=== PATIENT | male | born 1975 | race Caucasian/White ===

== ENCOUNTER 2019-10-12 22:52 | Inpatient (IN) | payer MEDICAID ==
[~2019-10-12] VITALS: Ht 170.2 cm; Wt 82.8 kg
[2019-10-13] MEDS ORDERED: TRAZ-252 PO (00:02)
[2019-10-13 01:40] LABS: BASOPHILS % (AUTO) 1.2 % (0.0-2.0); EOSINOPHILS % (AUTO) 3.6 % (1.0-6.0); HEMATOCRIT 40.4 % (41-53); HEMOGLOBIN 13.4 g/dL (13.5-17.5); LYMPHOCYTES # (AUTO) 1.4 K/uL (1.0-4.8); MEAN CORPUSCULAR HEMOGLOBIN 30.5 pg (26.0-34.0); MEAN CORPUSCULAR HGB CONC 33.2 G/dL (31.0-37.0); MEAN CORPUSCULAR VOLUME 92 fL (80-100); MONOCYTES # (AUTO) 0.6 K/uL (0.1-1.0); MONOCYTES % (AUTO) 6.9 % (2.0-9.0); NEUTROPHILS # (AUTO) 6.3 K/uL (1.8-7.7); NEUTROPHILS % (AUTO) 72.3 % (40.0-70.0); PLATELET COUNT (AUTO) 246 K/uL (150-450); RED BLOOD CELL COUNT(AUTO) 4.41 MIL/uL (4.50-5.90); RED CELL DISTRIBUTION WIDTH 14.6 % (11.5-14.5)
[2019-10-13 01:48] LABS: ANION GAP 4 mmol/L (8-16); CALCIUM, TOTAL 8.1 mg/dL (8.8-10.5); CARBON DIOXIDE 31 mmol/L (22-29); CHLORIDE 101 mmol/L (98-107); CREATININE 0.92 mg/dL (0.60-1.30); GLOMERULAR FILTR. RATE CALC > 60 mL/min (>60); GLUCOSE,RANDOM 119 mg/dL (70-110); POTASSIUM 4.2 mmol/L (3.5-5.1); SODIUM SERUM 136 mmol/L (136-145); UREA NITROGEN, BLOOD 28 mg/dL (7-18)
[2019-10-13 02:02] LABS: ALANINE AMINOTRANSFERASE 54 U/L (12-78); ALBUMIN 3.5 g/dL (3.4-5.0); ALKALINE PHOSPHATASE 90 U/L (46-116); ASPARTATE AMINOTRANSFERASE 32 U/L (15-37); BILIRUBIN,TOTAL 0.1 mg/dL (0.1-1.0); THYROID STIMULATING HORMONE 1.92 uIU/mL (0.36-3.74); TOTAL PROTEIN, SERUM 6.8 g/dL (6.4-8.2)
[2019-10-13] MEDS ORDERED: QUEtiapine FUMARATE 100 MG TABLET PO PRN (02:15)
[2019-10-13] MEDS: LORazepam 2 MG TABLET PO PRN (04:45)
[2019-10-13 05:39] VITALS: BP 118/71
[2019-10-13 08:11] VITALS: BP 105/85
[2019-10-13] MEDS ORDERED: ACETAMINOPHEN 325 MG TABLET PO PRN ×2 (15:15→19:45)
[2019-10-13 16:10] VITALS: BP 126/78
[2019-10-13] MEDS ORDERED: IBUPROFEN 400 MG TABLET PO PRN (16:45)
[2019-10-13] MEDS ORDERED: MAGNESIUM HYDROXIDE SUSPENSION 30 ML UDCUP PO PRN (19:45)
[2019-10-13] MEDS ORDERED: LOPERAMIDE HCL 2 MG CAPSULE PO PRN (19:45)
[2019-10-13] MEDS ORDERED: PETROLATUM,WHITE 28 GM JELLY TP PRN (19:45)
[2019-10-13] MEDS ORDERED: ONDANSETRON HCL 4 MG TABLET PO PRN (19:45)
[2019-10-13] MEDS ORDERED: ALBUTEROL SULFATE HFA 90 MCG/PUFF 8 GM INHALER IH PRN (19:45)
[2019-10-13] MEDS ORDERED: GuaiFENesin/D-METHORPHAN [SUGAR-FREE] 200-20MG/10 ML SYRUP UDCUP PO PRN (19:45)
[2019-10-13] MEDS ORDERED: MAG HYDROX/AL HYDROX/SIMETH ES 30 ML SUSPENSION UDCUP PO PRN (19:45)
[2019-10-13] MEDS ORDERED: NICOTINE 14 MG/24 HOUR PATCH TD PRN (19:45)
[2019-10-13] MEDS ORDERED: CloNIDine HCL 0.1 MG TABLET PO PRN (19:45)
[2019-10-13] MEDS ORDERED: DOCUSATE SODIUM 100 MG CAPSULE PO PRN (19:45)
[2019-10-13] MEDS: MIRTAZAPINE 15 MG TABLET PO SCH (20:42)
[2019-10-14 00:58] VITALS: BP 107/63
[2019-10-14] MEDS: IBUPROFEN 400 MG TABLET PO PRN (06:20)
[2019-10-14 08:18] VITALS: BP 120/70
[2019-10-14 08:26] LABS: HEMOGLOBIN A1C 5.4 % (3.8-5.6)
[2019-10-14 08:43] LABS: CHOL/HDL RATIO 2.4 (4.2-7.3); FREE T4 (FREE THYROXINE) 1.3 ng/dL (0.76-1.46); THYROID STIMULATING HORMONE 1.35 uIU/mL (0.36-3.74)
[2019-10-14 16:37] VITALS: BP 135/78
[2019-10-14] MEDS: LORazepam 2 MG TABLET PO PRN (18:38)
[2019-10-14] MEDS: MIRTAZAPINE 15 MG TABLET PO SCH (20:39)
[2019-10-15] MEDS: ZOLPIDEM TARTRATE 10 MG TABLET PO PRN (00:09)
[2019-10-15] MEDS: IBUPROFEN 400 MG TABLET PO PRN (03:04)
[2019-10-15 03:39] VITALS: BP 135/84
[2019-10-15 08:08] VITALS: BP 124/95
[2019-10-15 16:00] VITALS: BP 100/70
[2019-10-15] MEDS: MIRTAZAPINE 15 MG TABLET PO SCH (20:05)
[2019-10-15] MEDS ORDERED: OLANZapine 5 MG TABLET PO SCH (21:00)
[2019-10-16 00:35] VITALS: BP 119/73
[2019-10-16 08:18] VITALS: BP 100/60
[2019-10-16 17:22] VITALS: BP 111/75
[2019-10-16] MEDS: MIRTAZAPINE 15 MG TABLET PO SCH (20:01)
[2019-10-16] MEDS: OLANZapine 10 MG TABLET PO SCH (20:01)
[2019-10-17 01:39] VITALS: BP 110/72
[2019-10-17 08:02] VITALS: BP 120/88
[2019-10-17 16:08] VITALS: BP 118/72
[2019-10-17] MEDS: OLANZapine 10 MG TABLET PO SCH (20:09)
[2019-10-17] MEDS: MIRTAZAPINE 15 MG TABLET PO SCH (20:09)
[2019-10-18 00:45] VITALS: BP 115/70
[2019-10-18 08:46] VITALS: BP 111/66
[2019-10-18 16:20] VITALS: BP 126/69
[2019-10-18] MEDS: OLANZapine 10 MG TABLET PO SCH (20:01)
[2019-10-18] MEDS: MIRTAZAPINE 15 MG TABLET PO SCH (20:01)
[2019-10-19 00:30] VITALS: BP 129/75
[2019-10-19] MEDS: LORazepam 2 MG TABLET PO PRN (08:40)
[2019-10-19 08:46] VITALS: BP 128/77
[2019-10-19] MEDS: IBUPROFEN 400 MG TABLET PO PRN (09:16)
[2019-10-19 16:22] VITALS: BP 107/63
[2019-10-19] MEDS: OLANZapine 10 MG TABLET PO SCH (20:05)
[2019-10-19] MEDS: MIRTAZAPINE 15 MG TABLET PO SCH (20:05)
[2019-10-20 00:07] VITALS: BP 116/75
[2019-10-20 09:22] VITALS: BP 117/73
[2019-10-20 16:19] VITALS: BP_SYST 125; BP_SYST 146; BP_DIAS 81; BP_DIAS 89
[2019-10-20] MEDS: OLANZapine 10 MG TABLET PO SCH (20:11)
[2019-10-20] MEDS: MIRTAZAPINE 30 MG TABLET PO SCH (20:11)
[2019-10-21 01:08] VITALS: BP 121/77
[2019-10-21 08:01] VITALS: BP 131/76
[2019-10-21] MEDS: LORazepam 2 MG TABLET PO PRN ×2 (14:11→18:23)
[2019-10-21 16:09] VITALS: BP 117/67
[2019-10-21] MEDS: MIRTAZAPINE 30 MG TABLET PO SCH (20:11)
[2019-10-21] MEDS: OLANZapine 10 MG TABLET PO SCH (20:11)
[2019-10-21] MEDS: ZOLPIDEM TARTRATE 10 MG TABLET PO PRN (23:56)
[2019-10-22 00:18] VITALS: BP 110/69
[2019-10-22 08:39] VITALS: BP 139/70
[2019-10-22] MEDS: LORazepam 2 MG TABLET PO PRN ×2 (10:54→20:10)
[2019-10-22 16:28] VITALS: BP 104/74
[2019-10-22] MEDS: MIRTAZAPINE 30 MG TABLET PO SCH (20:10)
[2019-10-22] MEDS: OLANZapine 10 MG TABLET PO SCH (20:10)
[2019-10-22] MEDS: ZOLPIDEM TARTRATE 10 MG TABLET PO PRN (22:13)
[2019-10-23 00:54] VITALS: BP 120/75
[2019-10-23] MEDS: LORazepam 2 MG TABLET PO PRN ×2 (06:49→16:26)
[2019-10-23 08:13] VITALS: BP 130/64
[2019-10-23 16:03] VITALS: BP 107/64
[2019-10-23] MEDS: DiphenhydrAMINE HCL 25 MG CAPSULE PO PRN (18:18)
[2019-10-23] MEDS: OLANZapine 10 MG TABLET PO SCH (20:07)
[2019-10-23] MEDS: MIRTAZAPINE 30 MG TABLET PO SCH (20:07)
[2019-10-24 01:01] VITALS: BP 126/93
[2019-10-24 08:00] VITALS: BP 114/78
[2019-10-24] MEDS: LORazepam 2 MG TABLET PO PRN (12:06)
[2019-10-24 16:04] VITALS: BP 117/76
[2019-10-24] MEDS: MIRTAZAPINE 30 MG TABLET PO SCH (20:06)
[2019-10-24] MEDS: OLANZapine 10 MG TABLET PO SCH (20:06)
[2019-10-24] MEDS: DiphenhydrAMINE HCL 25 MG CAPSULE PO PRN (22:04)
[2019-10-25 01:14] VITALS: BP 128/70
[2019-10-25] MEDS: ZOLPIDEM TARTRATE 10 MG TABLET PO PRN (01:18)
[2019-10-25 08:42] VITALS: BP 100/60
[2019-10-25] MEDS: LORazepam 2 MG TABLET PO PRN ×2 (09:49→16:09)
[2019-10-25 16:11] VITALS: BP 116/81
[2019-10-25] MEDS: MIRTAZAPINE 30 MG TABLET PO SCH (20:47)
[2019-10-25] MEDS: OLANZapine 7.5 MG TABLET PO SCH (20:50)
[2019-10-26 00:02] VITALS: BP 116/78
[2019-10-26] MEDS: LORazepam 2 MG TABLET PO PRN ×2 (09:12→17:44)
[2019-10-26 09:17] VITALS: BP 130/75
[2019-10-26 16:20] VITALS: BP 118/78
[2019-10-26] MEDS: MIRTAZAPINE 30 MG TABLET PO SCH (20:02)
[2019-10-26] MEDS: OLANZapine 7.5 MG TABLET PO SCH (20:04)
[2019-10-26] MEDS: ZOLPIDEM TARTRATE 10 MG TABLET PO PRN (20:58)
[2019-10-27 00:29] VITALS: BP 120/82
[2019-10-27 08:13] VITALS: BP 140/77
[2019-10-27] MEDS: LORazepam 2 MG TABLET PO PRN (11:05)
[2019-10-27 16:00] VITALS: BP 128/75
[2019-10-27 18:43] VITALS: BP 128/75
[2019-10-27] MEDS: MIRTAZAPINE 30 MG TABLET PO SCH (20:16)
[2019-10-27] MEDS: OLANZapine 7.5 MG TABLET PO SCH (20:16)
[2019-10-28 01:12] VITALS: BP 103/64
[2019-10-28] MEDS: LORazepam 2 MG TABLET PO PRN (07:55)
[2019-10-28 08:12] VITALS: BP 135/74
[2019-10-28] MEDS ORDERED: MIRT30 PO ×2 (09:16→09:32)
[2019-10-28] MEDS ORDERED: OLAN7.5T2 PO (09:16)
[2019-10-28] MEDS ORDERED: OLAN7.5T9 PO (09:32)
== END 2019-10-28 10:50 | disposition home or self-care (01) | DRG 751 ==
LOC: EMS 22:54 → B2S 10-13 02:41
DX: F33.3 Major depressive disorder, recurrent, severe with psychotic symptoms (principal); R45.851 Suicidal ideations; F11.20 Opioid dependence, uncomplicated; R51 Headache; D64.9 Anemia, unspecified; R73.9 Hyperglycemia, unspecified; F19.90 Other psychoactive substance use, unspecified, uncomplicated; F41.9 Anxiety disorder, unspecified; G89.29 Other chronic pain; F17.210 Nicotine dependence, cigarettes, uncomplicated; Z59.0 Homelessness; Z71.51 Drug abuse counseling and surveillance of drug abuser; Z91.5 Personal history of self-harm; Z79.899 Other long term (current) drug therapy; Z87.820 Personal history of traumatic brain injury
CPT/HCPCS: 83036; 84439; 84443; G0480

== ENCOUNTER 2020-05-01 08:33 | Inpatient (IN) | payer MEDICAID ==
[~2020-05-01] VITALS: Ht 170.2 cm; Wt 63.8 kg
[2020-05-01] VITALS (11 sets, daily range): BP systolic 100–129; BP diastolic 60–94
[~2020-05-01 08:33] MED LIST: MIRT30 PO; OLAN7.5T2 PO; OLAN7.5T9 PO
[2020-05-01] MEDS ORDERED: INFLUENZA VIRUS VACCINE QVS 2020-21 (6MO+)/PF 60 MCG/0.5 ML SYRINGE IM ONE (14:15)
[2020-05-01] MEDS: LORazepam 2 MG TABLET PO PRN (19:52)
[2020-05-01] MEDS ORDERED: MAGNESIUM HYDROXIDE SUSPENSION 30 ML UDCUP PO PRN (20:15)
[2020-05-01] MEDS ORDERED: TUBERCULIN, PURIFIED PROTEIN DERIVATIVE 5 TU/0.1 ML SYRINGE ID ONE (20:15)
[2020-05-01] MEDS ORDERED: ACETAMINOPHEN 325 MG TABLET PO PRN (20:15)
[2020-05-01] MEDS ORDERED: HydrOXYzine PAMOATE 50 MG CAPSULE PO PRN ×2 (20:15)
[2020-05-01] MEDS ORDERED: CloNIDine HCL 0.1 MG TABLET PO PRN (20:15)
[2020-05-01] MEDS ORDERED: PROMETHAZINE HCL 25 MG TABLET PO PRN (20:15)
[2020-05-01] MEDS ORDERED: LOPERAMIDE HCL 2 MG CAPSULE PO PRN ×2 (20:15)
[2020-05-01] MEDS ORDERED: MAG HYDROX/AL HYDROX/SIMETH ES 30 ML SUSPENSION UDCUP PO PRN ×2 (20:15)
[2020-05-01] MEDS ORDERED: GuaiFENesin/D-METHORPHAN [SUGAR-FREE] 200-20MG/10 ML SYRUP UDCUP PO PRN (20:15)
[2020-05-01] MEDS ORDERED: IBUPROFEN 600 MG TABLET PO PRN (20:15)
[2020-05-01] MEDS ORDERED: OLANZapine 5 MG RAPDIS TABLET PO SCH (21:00)
[2020-05-01] MEDS: CloNIDine HCL 0.1 MG TABLET PO SCH (21:01)
[2020-05-02] VITALS (7 sets, daily range): BP systolic 105–121; BP diastolic 64–76
[2020-05-02] MEDS: CloNIDine HCL 0.1 MG TABLET PO SCH ×4 (06:00→21:57)
[2020-05-02] MEDS: FOLIC ACID 1 MG TABLET PO SCH (09:00)
[2020-05-02] MEDS: MULTIVITAMINS WITH MINERALS, THERAPEUTIC TABLET PO SCH (09:00)
[2020-05-02] MEDS: THIAMINE 100 MG TABLET PO SCH ×2 (09:00→17:07)
[2020-05-02] MEDS: ACAMPROSATE CALCIUM 333 MG DR TABLET PO SCH ×3 (09:00→17:10)
[2020-05-02] MEDS ORDERED: NALTREXONE HCL 50 MG TABLET PO SCH (09:00)
[2020-05-02] MEDS: FLUoxetine HCL 20 MG CAPSULE PO SCH (09:00)
[2020-05-02] MEDS: OMEGA-3/DHA/EPA/FISH OIL 1,000 MG CAPSULE PO SCH (09:00)
[2020-05-02] MEDS: HALOPERIDOL 5 MG TABLET PO PRN (09:20)
[2020-05-02] MEDS: LORazepam 2 MG TABLET PO PRN (09:20)
[2020-05-02] MEDS: OLANZapine 10 MG RAPDIS TABLET PO SCH (19:55)
[2020-05-03] VITALS (8 sets, daily range): BP systolic 102–132; BP diastolic 69–86
[2020-05-03] MEDS: CloNIDine HCL 0.1 MG TABLET PO SCH ×5 (05:56→21:04)
[2020-05-03] MEDS: MULTIVITAMINS WITH MINERALS, THERAPEUTIC TABLET PO SCH (09:00)
[2020-05-03] MEDS: FLUoxetine HCL 20 MG CAPSULE PO SCH (09:00)
[2020-05-03] MEDS: ACAMPROSATE CALCIUM 333 MG DR TABLET PO SCH ×3 (09:00→16:34)
[2020-05-03] MEDS: FOLIC ACID 1 MG TABLET PO SCH (09:00)
[2020-05-03] MEDS: OMEGA-3/DHA/EPA/FISH OIL 1,000 MG CAPSULE PO SCH (09:00)
[2020-05-03] MEDS: THIAMINE 100 MG TABLET PO SCH ×2 (09:00→16:34)
[2020-05-03] MEDS: DIVALPROEX SODIUM 500 MG ER TABLET PO SCH (21:04)
[2020-05-03] MEDS: OLANZapine 10 MG RAPDIS TABLET PO SCH (21:04)
[2020-05-04] VITALS (8 sets, daily range): BP systolic 117–131; BP diastolic 73–83
[2020-05-04] MEDS: CloNIDine HCL 0.1 MG TABLET PO SCH ×4 (06:00→21:10)
[2020-05-04] MEDS: THIAMINE 100 MG TABLET PO SCH ×2 (08:35→16:33)
[2020-05-04] MEDS: OMEGA-3/DHA/EPA/FISH OIL 1,000 MG CAPSULE PO SCH (08:35)
[2020-05-04] MEDS: MULTIVITAMINS WITH MINERALS, THERAPEUTIC TABLET PO SCH (08:35)
[2020-05-04] MEDS: FOLIC ACID 1 MG TABLET PO SCH (08:35)
[2020-05-04] MEDS: ACAMPROSATE CALCIUM 333 MG DR TABLET PO SCH (08:35)
[2020-05-04] MEDS: FLUoxetine HCL 20 MG CAPSULE PO SCH (08:35)
[2020-05-04] MEDS: HALOPERIDOL 5 MG TABLET PO PRN (10:37)
[2020-05-04] MEDS: DIVALPROEX SODIUM 500 MG ER TABLET PO SCH (21:03)
[2020-05-04] MEDS: OLANZapine 10 MG RAPDIS TABLET PO SCH (21:04)
[2020-05-05] VITALS: BP 139/86
[2020-05-05] MEDS: CloNIDine HCL 0.1 MG TABLET PO SCH ×4 (06:00→22:00)
[2020-05-05 08:24] VITALS: BP 117/70
[2020-05-05 08:25] VITALS: BP 117/70
[2020-05-05] MEDS: FOLIC ACID 1 MG TABLET PO SCH (09:06)
[2020-05-05] MEDS: OMEGA-3/DHA/EPA/FISH OIL 1,000 MG CAPSULE PO SCH (09:06)
[2020-05-05] MEDS: NALTREXONE HCL 50 MG TABLET PO SCH (09:07)
[2020-05-05] MEDS: MULTIVITAMINS WITH MINERALS, THERAPEUTIC TABLET PO SCH (09:07)
[2020-05-05] MEDS: THIAMINE 100 MG TABLET PO SCH ×2 (09:07→17:00)
[2020-05-05] MEDS: FLUoxetine HCL 20 MG CAPSULE PO SCH (09:07)
[2020-05-05] MEDS: LORazepam 2 MG TABLET PO PRN (10:17)
[2020-05-05 16:10] VITALS: BP 125/80
[2020-05-05 16:11] VITALS: BP 125/80
[2020-05-05] MEDS: GABAPENTIN 300 MG CAPSULE PO SCH ×2 (17:00→21:00)
[2020-05-05] MEDS: DIVALPROEX SODIUM 500 MG ER TABLET PO SCH (21:00)
[2020-05-05] MEDS: OLANZapine 10 MG RAPDIS TABLET PO SCH (21:00)
[2020-05-06] VITALS (9 sets, daily range): BP systolic 113–130; BP diastolic 76–97
[2020-05-06] MEDS: CloNIDine HCL 0.1 MG TABLET PO SCH ×4 (07:07→21:06)
[2020-05-06] MEDS: OMEGA-3/DHA/EPA/FISH OIL 1,000 MG CAPSULE PO SCH (08:57)
[2020-05-06] MEDS: FLUoxetine HCL 20 MG CAPSULE PO SCH (08:57)
[2020-05-06] MEDS: MULTIVITAMINS WITH MINERALS, THERAPEUTIC TABLET PO SCH (08:57)
[2020-05-06] MEDS: NALTREXONE HCL 50 MG TABLET PO SCH (08:57)
[2020-05-06] MEDS: THIAMINE 100 MG TABLET PO SCH ×2 (08:57→16:35)
[2020-05-06] MEDS: GABAPENTIN 300 MG CAPSULE PO SCH ×4 (08:57→21:06)
[2020-05-06] MEDS: FOLIC ACID 1 MG TABLET PO SCH (08:57)
[2020-05-06] MEDS: LORazepam 2 MG TABLET PO PRN (09:50)
[2020-05-06] MEDS: DIVALPROEX SODIUM 500 MG ER TABLET PO SCH (21:06)
[2020-05-06] MEDS: OLANZapine 10 MG RAPDIS TABLET PO SCH (21:06)
[2020-05-07] VITALS (7 sets, daily range): BP systolic 103–128; BP diastolic 69–82
[2020-05-07] MEDS: CloNIDine HCL 0.1 MG TABLET PO SCH ×4 (06:34→21:06)
[2020-05-07] MEDS: FLUoxetine HCL 20 MG CAPSULE PO SCH (08:19)
[2020-05-07] MEDS: NALTREXONE HCL 50 MG TABLET PO SCH (08:19)
[2020-05-07] MEDS: GABAPENTIN 300 MG CAPSULE PO SCH ×4 (08:19→21:05)
[2020-05-07] MEDS: OMEGA-3/DHA/EPA/FISH OIL 1,000 MG CAPSULE PO SCH (08:19)
[2020-05-07] MEDS: FOLIC ACID 1 MG TABLET PO SCH (08:19)
[2020-05-07] MEDS: THIAMINE 100 MG TABLET PO SCH ×2 (08:19→16:11)
[2020-05-07] MEDS: MULTIVITAMINS WITH MINERALS, THERAPEUTIC TABLET PO SCH (08:19)
[2020-05-07] MEDS: OLANZapine 10 MG RAPDIS TABLET PO SCH (21:05)
[2020-05-07] MEDS: DIVALPROEX SODIUM 500 MG ER TABLET PO SCH (21:06)
[2020-05-08] VITALS: BP 114/70
[2020-05-08 01:54] VITALS: BP 122/75
[2020-05-08] MEDS: CloNIDine HCL 0.1 MG TABLET PO SCH ×4 (06:05→21:06)
[2020-05-08] MEDS: OMEGA-3/DHA/EPA/FISH OIL 1,000 MG CAPSULE PO SCH (09:01)
[2020-05-08] MEDS: FOLIC ACID 1 MG TABLET PO SCH (09:01)
[2020-05-08] MEDS: GABAPENTIN 300 MG CAPSULE PO SCH ×2 (09:01→12:44)
[2020-05-08] MEDS: MULTIVITAMINS WITH MINERALS, THERAPEUTIC TABLET PO SCH (09:01)
[2020-05-08] MEDS: THIAMINE 100 MG TABLET PO SCH ×2 (09:01→16:58)
[2020-05-08] MEDS: NALTREXONE HCL 50 MG TABLET PO SCH (09:01)
[2020-05-08] MEDS: FLUoxetine HCL 20 MG CAPSULE PO SCH (09:01)
[2020-05-08 09:40] VITALS: BP 127/78
[2020-05-08 16:28] VITALS: BP 129/77
[2020-05-08] MEDS: GABAPENTIN 400 MG CAPSULE PO SCH ×2 (16:58→20:25)
[2020-05-08] MEDS: LORazepam 2 MG TABLET PO PRN (17:26)
[2020-05-08] MEDS: DIVALPROEX SODIUM 500 MG ER TABLET PO SCH (20:25)
[2020-05-08] MEDS: OLANZapine 10 MG RAPDIS TABLET PO SCH (20:25)
[2020-05-08 21:00] VITALS: BP 112/71
[2020-05-09 03:44] VITALS: BP 123/77
[2020-05-09] MEDS: CloNIDine HCL 0.1 MG TABLET PO SCH ×4 (05:58→22:26)
[2020-05-09 08:49] VITALS: BP 106/77
[2020-05-09] MEDS: GABAPENTIN 400 MG CAPSULE PO SCH ×2 (08:49→12:39)
[2020-05-09] MEDS: FLUoxetine HCL 20 MG CAPSULE PO SCH (08:49)
[2020-05-09] MEDS: NALTREXONE HCL 50 MG TABLET PO SCH (08:49)
[2020-05-09] MEDS: FOLIC ACID 1 MG TABLET PO SCH (08:49)
[2020-05-09] MEDS: THIAMINE 100 MG TABLET PO SCH ×2 (08:49→16:57)
[2020-05-09] MEDS: MULTIVITAMINS WITH MINERALS, THERAPEUTIC TABLET PO SCH (08:49)
[2020-05-09] MEDS: OMEGA-3/DHA/EPA/FISH OIL 1,000 MG CAPSULE PO SCH (08:49)
[2020-05-09] MEDS: LORazepam 2 MG TABLET PO PRN ×2 (08:50→17:18)
[2020-05-09 16:11] VITALS: BP 102/63
[2020-05-09] MEDS: GABAPENTIN 300 MG CAPSULE PO SCH ×2 (16:57→20:32)
[2020-05-09 17:17] VITALS: BP 129/73
[2020-05-09] MEDS ORDERED: TUBERCULIN, PURIFIED PROTEIN DERIVATIVE 5 TU/0.1 ML SYRINGE ID ONE (18:30)
[2020-05-09] MEDS ORDERED: INFLUENZA VIRUS VACCINE QVS 2020-21 (6MO+)/PF 60 MCG/0.5 ML SYRINGE IM ONE (18:30)
[2020-05-09] MEDS: DIVALPROEX SODIUM 500 MG ER TABLET PO SCH (20:32)
[2020-05-09] MEDS: OLANZapine 10 MG RAPDIS TABLET PO SCH (20:34)
[2020-05-10 00:29] VITALS: BP 120/68
[2020-05-10] MEDS: CloNIDine HCL 0.1 MG TABLET PO SCH ×4 (05:58→21:08)
[2020-05-10] MEDS: GABAPENTIN 300 MG CAPSULE PO SCH ×2 (08:17→12:47)
[2020-05-10] MEDS: THIAMINE 100 MG TABLET PO SCH ×2 (08:17→16:23)
[2020-05-10] MEDS: OMEGA-3/DHA/EPA/FISH OIL 1,000 MG CAPSULE PO SCH (08:17)
[2020-05-10] MEDS: NALTREXONE HCL 50 MG TABLET PO SCH (08:17)
[2020-05-10] MEDS: FLUoxetine HCL 20 MG CAPSULE PO SCH (08:17)
[2020-05-10] MEDS: FOLIC ACID 1 MG TABLET PO SCH (08:18)
[2020-05-10] MEDS: MULTIVITAMINS WITH MINERALS, THERAPEUTIC TABLET PO SCH (08:18)
[2020-05-10 08:23] VITALS: BP 142/71
[2020-05-10 12:45] VITALS: BP 127/80
[2020-05-10] MEDS: GABAPENTIN 400 MG CAPSULE PO SCH ×2 (16:25→21:08)
[2020-05-10 16:50] VITALS: BP 107/68
[2020-05-10 21:05] VITALS: BP 102/65
[2020-05-10] MEDS: OLANZapine 10 MG RAPDIS TABLET PO SCH (21:08)
[2020-05-10] MEDS: DIVALPROEX SODIUM 500 MG ER TABLET PO SCH (21:08)
[2020-05-11 02:15] VITALS: BP 130/77
[2020-05-11 06:18] VITALS: BP 124/81
[2020-05-11] MEDS: CloNIDine HCL 0.1 MG TABLET PO SCH ×2 (06:23→12:40)
[2020-05-11 07:44] LABS: BASOPHILS % (AUTO) 1.2 % (0.0-2.0); EOSINOPHILS % (AUTO) 4.1 % (1.0-6.0); HEMATOCRIT 44.1 % (41-53); HEMOGLOBIN 15.1 g/dL (13.5-17.5); LYMPHOCYTES # (AUTO) 1.9 K/uL (1.0-4.8); LYMPHOCYTES % (AUTO) 20.3 % (22.0-44.0); MEAN CORPUSCULAR HEMOGLOBIN 31.9 pg (26.0-34.0); MEAN CORPUSCULAR HGB CONC 34.3 G/dL (31.0-37.0); MEAN CORPUSCULAR VOLUME 93 fL (80-100); MONOCYTES # (AUTO) 0.8 K/uL (0.1-1.0); MONOCYTES % (AUTO) 8.6 % (2.0-9.0); NEUTROPHILS # (AUTO) 6.3 K/uL (1.8-7.7); NEUTROPHILS % (AUTO) 65.8 % (40.0-70.0); PLATELET COUNT (AUTO) 285 K/uL (150-450); RED BLOOD CELL COUNT(AUTO) 4.75 MIL/uL (4.50-5.90); RED CELL DISTRIBUTION WIDTH 13.5 % (11.5-14.5)
[2020-05-11 08:17] LABS: HEMOGLOBIN A1C 5.3 % (3.8-5.6)
[2020-05-11 08:18] LABS: ALANINE AMINOTRANSFERASE 51 U/L (12-78); ALBUMIN 3.3 g/dL (3.4-5.0); ALKALINE PHOSPHATASE 86 U/L (46-116); ANION GAP 7 mmol/L (8-16); ASPARTATE AMINOTRANSFERASE 22 U/L (15-37); BILIRUBIN,TOTAL 0.2 mg/dL (0.1-1.0); CALCIUM, TOTAL 9.3 mg/dL (8.8-10.5); CARBON DIOXIDE 30 mmol/L (22-29); CHLORIDE 102 mmol/L (98-107); CHOL/HDL RATIO 3.5 (4.2-7.3); CHOLESTEROL 194 mg/dL (131-200); CREATININE 0.67 mg/dL (0.60-1.30); FREE T4 (FREE THYROXINE) 0.92 ng/dL (0.76-1.46); GLOMERULAR FILTR. RATE CALC > 60 mL/min (>60); GLUCOSE,RANDOM 76 mg/dL (70-110); HDL CHOLESTEROL 56 mg/dL (40-60); LDL CHOL (CALC.) 107 mg/dL (0-130); POTASSIUM 4.3 mmol/L (3.5-5.1); SODIUM SERUM 139 mmol/L (136-145); THYROID STIMULATING HORMONE 0.66 uIU/mL (0.36-3.74); TOTAL PROTEIN, SERUM 7.2 g/dL (6.4-8.2); TRIGLYCERIDES 154 mg/dL (15-150); UREA NITROGEN, BLOOD 19 mg/dL (7-18); VALPROIC ACID 62 mcg/mL (50-100)
[2020-05-11 08:26] VITALS: BP 105/64
[2020-05-11] MEDS: MULTIVITAMINS WITH MINERALS, THERAPEUTIC TABLET PO SCH (08:47)
[2020-05-11] MEDS: FLUoxetine HCL 20 MG CAPSULE PO SCH (08:47)
[2020-05-11] MEDS: OMEGA-3/DHA/EPA/FISH OIL 1,000 MG CAPSULE PO SCH (08:47)
[2020-05-11] MEDS: GABAPENTIN 400 MG CAPSULE PO SCH ×2 (08:47→12:40)
[2020-05-11] MEDS: NALTREXONE HCL 50 MG TABLET PO SCH (08:48)
[2020-05-11] MEDS: THIAMINE 100 MG TABLET PO SCH ×2 (08:48→16:52)
[2020-05-11] MEDS: FOLIC ACID 1 MG TABLET PO SCH (08:48)
[2020-05-11 12:40] VITALS: BP 122/72
[2020-05-11 16:28] VITALS: BP 119/70
[2020-05-11] MEDS: LITHIUM CARBONATE 300 MG CAPSULE PO SCH (16:52)
[2020-05-11] MEDS: GABAPENTIN 300 MG CAPSULE PO SCH ×2 (16:52→20:21)
[2020-05-11] MEDS: DIVALPROEX SODIUM 500 MG ER TABLET PO SCH (20:21)
[2020-05-11] MEDS: OLANZapine 10 MG RAPDIS TABLET PO SCH (20:21)
[2020-05-12 00:17] VITALS: BP 110/89
[2020-05-12] MEDS: LITHIUM CARBONATE 300 MG CAPSULE PO SCH ×3 (06:31→16:22)
[2020-05-12] MEDS: GABAPENTIN 300 MG CAPSULE PO SCH ×4 (08:30→20:12)
[2020-05-12] MEDS: NALTREXONE HCL 50 MG TABLET PO SCH (08:30)
[2020-05-12] MEDS: FLUoxetine HCL 20 MG CAPSULE PO SCH (08:30)
[2020-05-12] MEDS: OMEGA-3/DHA/EPA/FISH OIL 1,000 MG CAPSULE PO SCH (08:31)
[2020-05-12] MEDS: MULTIVITAMINS WITH MINERALS, THERAPEUTIC TABLET PO SCH (08:31)
[2020-05-12 09:55] VITALS: BP 122/65
[2020-05-12] MEDS: GABAPENTIN 100 MG CAPSULE PO SCH ×3 (12:45→20:12)
[2020-05-12 16:32] VITALS: BP 123/85
[2020-05-12] MEDS: LORazepam 2 MG TABLET PO PRN (18:16)
[2020-05-12] MEDS: OLANZapine 10 MG RAPDIS TABLET PO SCH (20:12)
[2020-05-12] MEDS: DIVALPROEX SODIUM 500 MG ER TABLET PO SCH (20:12)
[2020-05-13 00:14] VITALS: BP 130/76
[2020-05-13] MEDS: LITHIUM CARBONATE 300 MG CAPSULE PO SCH ×3 (06:38→16:11)
[2020-05-13] MEDS: LORazepam 2 MG TABLET PO PRN (07:07)
[2020-05-13] MEDS: GABAPENTIN 300 MG CAPSULE PO SCH ×4 (08:13→20:24)
[2020-05-13] MEDS: FLUoxetine HCL 20 MG CAPSULE PO SCH (08:13)
[2020-05-13] MEDS: GABAPENTIN 100 MG CAPSULE PO SCH ×4 (08:13→20:24)
[2020-05-13] MEDS: MULTIVITAMINS WITH MINERALS, THERAPEUTIC TABLET PO SCH (08:13)
[2020-05-13] MEDS: NALTREXONE HCL 50 MG TABLET PO SCH (08:13)
[2020-05-13] MEDS: OMEGA-3/DHA/EPA/FISH OIL 1,000 MG CAPSULE PO SCH (08:14)
[2020-05-13 10:35] VITALS: BP 115/60
[2020-05-13 16:36] VITALS: BP 123/88
[2020-05-13] MEDS: DIVALPROEX SODIUM 500 MG ER TABLET PO SCH (20:23)
[2020-05-13] MEDS: OLANZapine 10 MG RAPDIS TABLET PO SCH (20:24)
[2020-05-14 00:45] VITALS: BP 120/67
[2020-05-14] MEDS: LITHIUM CARBONATE 300 MG CAPSULE PO SCH ×3 (06:49→16:14)
[2020-05-14 08:01] LABS: APPEARANCE,URINE CLEAR (CLEAR); BILIRUBIN,URINE NEGATIVE (NEGATIVE); GLUCOSE, URINE (UA) NEGATIVE (NEGATIVE); KETONES,URINE NEGATIVE (NEGATIVE); LEUKOCYTE ESTERASE ,URINE NEGATIVE (NEGATIVE); NITRATE,URINE NEGATIVE (NEGATIVE); OCCULT BLOOD,URINE NEGATIVE (NEGATIVE); PROTEIN,URINE NEGATIVE (NEGATIVE); UROBILINOGEN,URINE 0.2 mg/dL (<=1.0)
[2020-05-14 08:14] LABS: AMPHET/METH SCREEN,URINE NEGATIVE (NEGATIVE); BARBITURATE SCREEN, URINE NEGATIVE (NEGATIVE); BENZODIAZEPINES SCREEN,URINE NEGATIVE (NEGATIVE); CANNABINOID SCREEN,URINE NEGATIVE (NEGATIVE); COCAINE SCREEN,URINE NEGATIVE (NEGATIVE); METHADONE SCREEN, URINE NEGATIVE (NEGATIVE); OPIATE SCREEN,URINE NEGATIVE (NEGATIVE)
[2020-05-14 08:15] LABS: PHENCYCLIDINE SCREEN,URINE NEGATIVE (NEGATIVE)
[2020-05-14] MEDS: GABAPENTIN 100 MG CAPSULE PO SCH ×4 (08:28→20:24)
[2020-05-14] MEDS: FLUoxetine HCL 20 MG CAPSULE PO SCH (08:28)
[2020-05-14] MEDS: GABAPENTIN 300 MG CAPSULE PO SCH ×4 (08:28→20:24)
[2020-05-14] MEDS: OMEGA-3/DHA/EPA/FISH OIL 1,000 MG CAPSULE PO SCH (08:28)
[2020-05-14] MEDS: NALTREXONE HCL 50 MG TABLET PO SCH (08:28)
[2020-05-14] MEDS: MULTIVITAMINS WITH MINERALS, THERAPEUTIC TABLET PO SCH (08:28)
[2020-05-14 08:54] VITALS: BP 148/99
[2020-05-14] MEDS: LORazepam 2 MG TABLET PO PRN (13:43)
[2020-05-14 16:39] VITALS: BP 116/90
[2020-05-14] MEDS: DIVALPROEX SODIUM 500 MG ER TABLET PO SCH (20:23)
[2020-05-14] MEDS: OLANZapine 10 MG RAPDIS TABLET PO SCH (20:24)
[2020-05-15 01:47] VITALS: BP 117/82
[2020-05-15] MEDS: LITHIUM CARBONATE 300 MG CAPSULE PO SCH ×3 (06:49→16:49)
[2020-05-15] MEDS: MULTIVITAMINS WITH MINERALS, THERAPEUTIC TABLET PO SCH (09:04)
[2020-05-15] MEDS: FLUoxetine HCL 20 MG CAPSULE PO SCH (09:04)
[2020-05-15] MEDS: GABAPENTIN 300 MG CAPSULE PO SCH ×4 (09:04→20:19)
[2020-05-15] MEDS: NALTREXONE HCL 50 MG TABLET PO SCH (09:05)
[2020-05-15] MEDS: GABAPENTIN 100 MG CAPSULE PO SCH ×4 (09:05→20:19)
[2020-05-15] MEDS: OMEGA-3/DHA/EPA/FISH OIL 1,000 MG CAPSULE PO SCH (09:05)
[2020-05-15 09:17] VITALS: BP 123/77
[2020-05-15] MEDS: LORazepam 2 MG TABLET PO PRN (10:42)
[2020-05-15 16:15] VITALS: BP 128/76
[2020-05-15] MEDS: DIVALPROEX SODIUM 500 MG ER TABLET PO SCH (20:20)
[2020-05-15] MEDS: OLANZapine 10 MG RAPDIS TABLET PO SCH (20:20)
[2020-05-15] MEDS: ZOLPIDEM TARTRATE 10 MG TABLET PO PRN (21:59)
[2020-05-16 01:07] VITALS: BP 133/92
[2020-05-16] MEDS: LITHIUM CARBONATE 300 MG CAPSULE PO SCH ×3 (06:56→16:19)
[2020-05-16 08:20] VITALS: BP 125/77
[2020-05-16] MEDS: MULTIVITAMINS WITH MINERALS, THERAPEUTIC TABLET PO SCH (08:22)
[2020-05-16] MEDS: FLUoxetine HCL 20 MG CAPSULE PO SCH (08:22)
[2020-05-16] MEDS: GABAPENTIN 300 MG CAPSULE PO SCH ×4 (08:23→20:09)
[2020-05-16] MEDS: NALTREXONE HCL 50 MG TABLET PO SCH (08:23)
[2020-05-16] MEDS: GABAPENTIN 100 MG CAPSULE PO SCH ×4 (08:23→20:09)
[2020-05-16] MEDS: OMEGA-3/DHA/EPA/FISH OIL 1,000 MG CAPSULE PO SCH (08:23)
[2020-05-16] MEDS ORDERED: OMEGA-3/DHA/EPA/FISH OIL 1,000 MG CAPSULE PO SCH (09:00)
[2020-05-16] MEDS: LORazepam 2 MG TABLET PO PRN (10:54)
[2020-05-16 16:18] VITALS: BP 129/76
[2020-05-16] MEDS: DIVALPROEX SODIUM 500 MG ER TABLET PO SCH (20:10)
[2020-05-16] MEDS: OLANZapine 10 MG RAPDIS TABLET PO SCH (20:10)
[2020-05-16] MEDS: ZOLPIDEM TARTRATE 10 MG TABLET PO PRN (20:10)
[2020-05-17 01:25] VITALS: BP 110/81
[2020-05-17] MEDS: LITHIUM CARBONATE 300 MG CAPSULE PO SCH ×3 (07:05→16:06)
[2020-05-17 08:11] VITALS: BP 136/84
[2020-05-17] MEDS: GABAPENTIN 100 MG CAPSULE PO SCH ×3 (08:26→16:07)
[2020-05-17] MEDS: NALTREXONE HCL 50 MG TABLET PO SCH (08:26)
[2020-05-17] MEDS: OMEGA-3/DHA/EPA/FISH OIL 1,000 MG CAPSULE PO SCH (08:26)
[2020-05-17] MEDS: GABAPENTIN 300 MG CAPSULE PO SCH ×3 (08:26→16:06)
[2020-05-17] MEDS: MULTIVITAMINS WITH MINERALS, THERAPEUTIC TABLET PO SCH (08:26)
[2020-05-17] MEDS: FLUoxetine HCL 20 MG CAPSULE PO SCH (08:26)
[2020-05-17] MEDS ORDERED: DIVA-80 PO (15:02)
[2020-05-17] MEDS ORDERED: FLUO-191 PO (15:02)
[2020-05-17] MEDS ORDERED: NALT50TA PO (15:02)
[2020-05-17] MEDS ORDERED: OMEG-135 PO (15:02)
[2020-05-17] MEDS ORDERED: LITH300C3 PO (15:02)
[2020-05-17] MEDS ORDERED: OLAN10TA22 PO (15:02)
[2020-05-17] MEDS ORDERED: LITH600 PO (15:04)
[2020-05-17] MEDS ORDERED: OLANZapine 10 MG TABLET PO ONE (15:45)
[2020-05-17] MEDS ORDERED: LITHIUM CARBONATE 600 MG CAPSULE PO ONE (15:45)
[2020-05-17] MEDS ORDERED: LITHIUM CARBONATE 300 MG CAPSULE PO ONE (15:45)
[2020-05-17] MEDS ORDERED: DIVALPROEX SODIUM 500 MG ER TABLET PO ONE (15:45)
== END 2020-05-17 17:00 | disposition home or self-care (01) | DRG 750 ==
LOC: B2S 12:18
PROVIDERS: ADMIT Psychiatry & Neurology Psychiatry; ATTEND Psychiatry & Neurology Psychiatry
DX: F20.0 Paranoid schizophrenia (principal); E11.9 Type 2 diabetes mellitus without complications; G89.29 Other chronic pain; R45.851 Suicidal ideations; F17.210 Nicotine dependence, cigarettes, uncomplicated; Z55.9 Problems related to education and literacy, unspecified; Z59.0 Homelessness; Z65.3 Problems related to other legal circumstances; Z79.899 Other long term (current) drug therapy; Z91.14 Patient's other noncompliance with medication regimen; Z91.19 Patient's noncompliance with other medical treatment and regimen; Z28.21 Immunization not carried out because of patient refusal
CPT/HCPCS: 80307; 83036; 84439; 84443; 86592; 90686; 36415-L1; 36415-TC; 71045-TC; 80061-TC; 81003-TC

== ENCOUNTER 2021-02-17 15:35 | Inpatient (IN) | payer MEDICAID ==
[~2021-02-17] VITALS: Ht 170.2 cm; Wt 70.8 kg
[~2021-02-17 15:35] MED LIST changes: +DIVA-80 PO; +FLUO-191 PO; +LITH600C5 PO; -MIRT30 PO; +NALT50TA PO; +OLAN10TA22 PO; -OLAN7.5T2 PO; -OLAN7.5T9 PO; +OMEG-135 PO
[2021-02-17] MEDS ORDERED: ZOLPIDEM TARTRATE 10 MG TABLET PO PRN (20:30)
[2021-02-17 20:38] LABS: COVID AG,FIA SOURCE NASOPHARYNGEAL
[2021-02-17 20:40] LABS: BASOPHILS % (AUTO) 1.3 % (0.0-2.0); EOSINOPHILS % (AUTO) 2.6 % (1.0-6.0); HEMATOCRIT 43.2 % (41-53); HEMOGLOBIN 14.7 g/dL (13.5-17.5); LYMPHOCYTES # (AUTO) 1.6 K/uL (1.0-4.8); LYMPHOCYTES % (AUTO) 21.4 % (22.0-44.0); MEAN CORPUSCULAR HEMOGLOBIN 31.2 pg (26.0-34.0); MEAN CORPUSCULAR VOLUME 92 fL (80-100); MONOCYTES # (AUTO) 0.6 K/uL (0.1-1.0); MONOCYTES % (AUTO) 7.3 % (2.0-9.0); NEUTROPHILS # (AUTO) 5.1 K/uL (1.8-7.7); NEUTROPHILS % (AUTO) 67.4 % (40.0-70.0); PLATELET COUNT (AUTO) 245 K/uL (150-450); RED CELL DISTRIBUTION WIDTH 13.1 % (11.5-14.5)
[2021-02-17 20:48] LABS: AMPHET/METH SCREEN,URINE NEGATIVE (NEGATIVE); BARBITURATE SCREEN, URINE NEGATIVE (NEGATIVE); BENZODIAZEPINES SCREEN,URINE NEGATIVE (NEGATIVE); CANNABINOID SCREEN,URINE NEGATIVE (NEGATIVE); COCAINE SCREEN,URINE NEGATIVE (NEGATIVE); METHADONE SCREEN, URINE NEGATIVE (NEGATIVE); OPIATE SCREEN,URINE NEGATIVE (NEGATIVE)
[2021-02-17 20:49] LABS: ANION GAP 4 mmol/L (8-16); CALCIUM, TOTAL 8.8 mg/dL (8.8-10.5); CARBON DIOXIDE 33 mmol/L (22-29); CHLORIDE 96 mmol/L (98-107); CREATININE 0.74 mg/dL (0.60-1.30); GLOMERULAR FILTR. RATE CALC > 60 mL/min (>60); GLUCOSE,RANDOM 112 mg/dL (70-110); POTASSIUM 4.1 mmol/L (3.5-5.1); SODIUM SERUM 133 mmol/L (136-145); UREA NITROGEN, BLOOD 17 mg/dL (7-18)
[2021-02-17 20:49] LABS: PHENCYCLIDINE SCREEN,URINE NEGATIVE (NEGATIVE)
[2021-02-17 20:52] LABS: LITHIUM < 0.20 mmol/L (0.60-1.20)
[2021-02-17 20:57] LABS: ALANINE AMINOTRANSFERASE 44 U/L (12-78); ALBUMIN 3.9 g/dL (3.4-5.0); ALKALINE PHOSPHATASE 72 U/L (46-116); ASPARTATE AMINOTRANSFERASE 24 U/L (15-37); BILIRUBIN,TOTAL 0.5 mg/dL (0.1-1.0); TOTAL PROTEIN, SERUM 7.9 g/dL (6.4-8.2); VALPROIC ACID < 3 mcg/mL (50-100)
[2021-02-18 01:32] LABS: CHOL/HDL RATIO 2.9 (4.2-7.3); CHOLESTEROL 191 mg/dL (131-200); HDL CHOLESTEROL 66 mg/dL (40-60); LDL CHOL (CALC.) 105 mg/dL (0-130); TRIGLYCERIDES 101 mg/dL (15-150)
[2021-02-18] MEDS: LORazepam 2 MG TABLET PO PRN ×2 (04:30→10:50)
[2021-02-18] MEDS: HALOPERIDOL 5 MG TABLET PO PRN (10:50)
[2021-02-18 16:28] LABS: APPEARANCE,URINE CLEAR (CLEAR); BILIRUBIN,URINE NEGATIVE (NEGATIVE); GLUCOSE, URINE (UA) NEGATIVE (NEGATIVE); KETONES,URINE NEGATIVE (NEGATIVE); LEUKOCYTE ESTERASE ,URINE NEGATIVE (NEGATIVE); NITRATE,URINE NEGATIVE (NEGATIVE); OCCULT BLOOD,URINE NEGATIVE (NEGATIVE); PH,URINE 7.5 (5.0-8.0); PROTEIN,URINE NEGATIVE (NEGATIVE)
[2021-02-18 16:34] VITALS: BP 126/87
[2021-02-19 00:29] LABS: GLUCOMETER DEV NAME(LOC) BV3N.; GLUCOSE,POINT OF CARE 111 MG/DL (70-110)
[2021-02-19] MEDS: LORazepam 2 MG TABLET PO PRN ×3 (09:22→20:11)
[2021-02-19] MEDS: HALOPERIDOL 5 MG TABLET PO PRN ×2 (09:22→16:10)
[2021-02-19 09:26] VITALS: BP 119/76
[2021-02-19] MEDS ORDERED: ACETAMINOPHEN 325 MG TABLET PO PRN (10:30)
[2021-02-19] MEDS ORDERED: LOPERAMIDE HCL 2 MG CAPSULE PO PRN (10:30)
[2021-02-19] MEDS ORDERED: NICOTINE 14 MG/24 HOUR PATCH TD PRN (10:30)
[2021-02-19] MEDS ORDERED: ALBUTEROL SULFATE HFA 90 MCG/PUFF 8 GM INHALER IH PRN (10:30)
[2021-02-19] MEDS ORDERED: GuaiFENesin/D-METHORPHAN [SUGAR-FREE] 200-20MG/10 ML SYRUP UDCUP PO PRN (10:30)
[2021-02-19] MEDS ORDERED: MAG HYDROX/AL HYDROX/SIMETH ES 30 ML SUSPENSION UDCUP PO PRN (10:30)
[2021-02-19] MEDS ORDERED: ONDANSETRON HCL 4 MG TABLET PO PRN (10:30)
[2021-02-19] MEDS ORDERED: IBUPROFEN 400 MG TABLET PO PRN (10:30)
[2021-02-19] MEDS ORDERED: CloNIDine HCL 0.1 MG TABLET PO PRN (10:30)
[2021-02-19] MEDS ORDERED: PETROLATUM,WHITE 28 GM JELLY TP PRN (10:30)
[2021-02-19] MEDS ORDERED: DOCUSATE SODIUM 100 MG CAPSULE PO PRN (10:30)
[2021-02-19] MEDS ORDERED: MAGNESIUM HYDROXIDE SUSPENSION 30 ML UDCUP PO PRN (10:30)
[2021-02-19] MEDS: ESCITALOPRAM OXALATE 10 MG TABLET PO SCH (11:02)
[2021-02-19] MEDS: LITHIUM CARBONATE 300 MG CAPSULE PO SCH ×2 (13:00→16:10)
[2021-02-19] MEDS: GABAPENTIN 300 MG CAPSULE PO SCH ×2 (13:00→16:10)
[2021-02-19 17:42] VITALS: BP 119/81
[2021-02-19] MEDS: DIVALPROEX SODIUM 500 MG DR TABLET PO SCH (20:11)
[2021-02-19 20:32] VITALS: BP 119/81
[2021-02-19] MEDS ORDERED: HALOPERIDOL LACTATE 5 MG/ML VIAL ONE (23:03)
[2021-02-19] MEDS ORDERED: DiphenhydrAMINE HCL 50 MG/ML VIAL ONE (23:03)
[2021-02-19] MEDS ORDERED: LORazepam 2 MG/ML VIAL ONE (23:03)
[2021-02-19] MEDS ORDERED: LORazepam 2 MG/ML VIAL IM ONE (23:15)
[2021-02-19] MEDS ORDERED: DiphenhydrAMINE HCL 50 MG/ML VIAL IM ONE (23:15)
[2021-02-19] MEDS ORDERED: HALOPERIDOL LACTATE 5 MG/ML VIAL IM ONE (23:15)
[2021-02-20] MEDS: HALOPERIDOL 5 MG TABLET PO PRN ×2 (08:30→16:52)
[2021-02-20] MEDS: LORazepam 2 MG TABLET PO PRN ×3 (08:30→16:52)
[2021-02-20] MEDS: ESCITALOPRAM OXALATE 10 MG TABLET PO SCH (09:16)
[2021-02-20] MEDS: LITHIUM CARBONATE 300 MG CAPSULE PO SCH ×3 (09:16→16:52)
[2021-02-20] MEDS: OMEGA-3/DHA/EPA/FISH OIL 1,000 MG CAPSULE PO SCH (09:16)
[2021-02-20] MEDS: GABAPENTIN 300 MG CAPSULE PO SCH ×3 (09:16→16:51)
[2021-02-20 16:15] VITALS: BP 132/90
[2021-02-20] MEDS: DIVALPROEX SODIUM 500 MG DR TABLET PO SCH (20:34)
[2021-02-21] VITALS (9 sets, daily range): BP systolic 92–150; BP diastolic 53–96
[2021-02-21] MEDS: HALOPERIDOL 5 MG TABLET PO PRN ×2 (08:20→16:48)
[2021-02-21] MEDS: LORazepam 2 MG TABLET PO PRN ×2 (08:20→12:52)
[2021-02-21] MEDS: GABAPENTIN 300 MG CAPSULE PO SCH ×3 (08:35→16:48)
[2021-02-21] MEDS: LITHIUM CARBONATE 300 MG CAPSULE PO SCH ×3 (08:35→16:48)
[2021-02-21] MEDS: ESCITALOPRAM OXALATE 10 MG TABLET PO SCH (08:35)
[2021-02-21] MEDS: OMEGA-3/DHA/EPA/FISH OIL 1,000 MG CAPSULE PO SCH (08:35)
[2021-02-21] MEDS ORDERED: CloNIDine HCL 0.1 MG TABLET PO PRN (11:15)
[2021-02-21] MEDS ORDERED: IBUPROFEN 600 MG TABLET PO PRN (11:15)
[2021-02-21] MEDS ORDERED: HydrOXYzine PAMOATE 50 MG CAPSULE PO PRN (11:15)
[2021-02-21] MEDS ORDERED: MAG HYDROX/AL HYDROX/SIMETH ES 30 ML SUSPENSION UDCUP PO PRN (11:15)
[2021-02-21] MEDS: CloNIDine HCL 0.1 MG TABLET PO SCH ×3 (12:52→22:00)
[2021-02-21] MEDS: DIVALPROEX SODIUM 500 MG DR TABLET PO SCH (21:00)
[2021-02-22 04:41] VITALS: BP 86/63
[2021-02-22 05:35] VITALS: BP 105/60
[2021-02-22 05:37] VITALS: BP 105/60
[2021-02-22] MEDS: CloNIDine HCL 0.1 MG TABLET PO SCH ×4 (06:24→22:00)
[2021-02-22] MEDS: ESCITALOPRAM OXALATE 10 MG TABLET PO SCH (09:17)
[2021-02-22] MEDS: OMEGA-3/DHA/EPA/FISH OIL 1,000 MG CAPSULE PO SCH (09:17)
[2021-02-22] MEDS: LITHIUM CARBONATE 300 MG CAPSULE PO SCH ×3 (09:17→17:00)
[2021-02-22] MEDS: GABAPENTIN 300 MG CAPSULE PO SCH ×3 (09:17→17:00)
[2021-02-22] MEDS: HALOPERIDOL 5 MG TABLET PO PRN (12:10)
[2021-02-22] MEDS: LORazepam 2 MG TABLET PO PRN (12:10)
[2021-02-22 12:24] VITALS: BP 116/70
[2021-02-22] MEDS ORDERED: ACETAMINOPHEN 650 MG/20.3 ML SOLUTION UDCUP PO ONE (12:45)
[2021-02-22 15:23] VITALS: BP 112/68
[2021-02-22] MEDS: DIVALPROEX SODIUM 500 MG DR TABLET PO SCH (21:00)
== END 2021-02-23 07:35 | disposition short-term general hospital (02) | DRG 750 ==
LOC: EMS 15:38 → B3A 02-18 14:52
PROVIDERS: ADMIT Psychiatry & Neurology Child & Adolescent Psychiatry; ATTEND Psychiatry & Neurology Child & Adolescent Psychiatry
DX: F25.1 Schizoaffective disorder, depressive type (principal); R45.851 Suicidal ideations; E87.1 Hypo-osmolality and hyponatremia; F17.210 Nicotine dependence, cigarettes, uncomplicated; F41.9 Anxiety disorder, unspecified; E11.9 Type 2 diabetes mellitus without complications; R00.0 Tachycardia, unspecified
CPT/HCPCS: 80053; 80061; 80164; 80178; 81003; 82962; 85025; 99285; G0480; J1200; J1630; J2060

== ENCOUNTER 2021-02-22 15:48 | Inpatient (IN) | payer MEDICAID ==
[~2021-02-22] VITALS: Ht 167.6 cm; Wt 67.0 kg
[2021-02-22] MEDS ORDERED: SODIUM CHLORIDE 0.9% 2,000 ML IV ONE (16:30)
[2021-02-22 17:17] LABS: BASOPHILS % (AUTO) 1.4 % (0.0-2.0); EOSINOPHILS % (AUTO) 2.7 % (1.0-6.0); HEMATOCRIT 44.9 % (41-53); HEMOGLOBIN 15.2 g/dL (13.5-17.5); LYMPHOCYTES # (AUTO) 1.9 K/uL (1.0-4.8); LYMPHOCYTES % (AUTO) 27.7 % (22.0-44.0); MEAN CORPUSCULAR HEMOGLOBIN 31.3 pg (26.0-34.0); MEAN CORPUSCULAR HGB CONC 33.8 G/dL (31.0-37.0); MEAN CORPUSCULAR VOLUME 93 fL (80-100); MONOCYTES # (AUTO) 0.7 K/uL (0.1-1.0); MONOCYTES % (AUTO) 10.1 % (2.0-9.0); NEUTROPHILS # (AUTO) 3.9 K/uL (1.8-7.7); NEUTROPHILS % (AUTO) 58.1 % (40.0-70.0); PLATELET COUNT (AUTO) 232 K/uL (150-450); RED BLOOD CELL COUNT(AUTO) 4.84 MIL/uL (4.50-5.90); RED CELL DISTRIBUTION WIDTH 13.3 % (11.5-14.5)
[2021-02-22 17:31] LABS: INR 1.1 (0.9-1.1); PROTHROMBIN TIME 11.3 SEC (9.4-11.6)
[2021-02-22 17:34] LABS: ANION GAP 12 mmol/L (8-16); CALCIUM, TOTAL 9.2 mg/dL (8.8-10.5); CARBON DIOXIDE 26 mmol/L (22-29); CHLORIDE 105 mmol/L (98-107); GLOMERULAR FILTR. RATE CALC > 60 mL/min (>60); GLUCOSE,RANDOM 91 mg/dL (70-110); POTASSIUM 4.1 mmol/L (3.5-5.1); SODIUM SERUM 143 mmol/L (136-145); UREA NITROGEN, BLOOD 29 mg/dL (7-18)
[2021-02-22 17:37] LABS: ALANINE AMINOTRANSFERASE 37 U/L (12-78); ALBUMIN 3.7 g/dL (3.4-5.0); ALKALINE PHOSPHATASE 59 U/L (46-116); ASPARTATE AMINOTRANSFERASE 27 U/L (15-37); TOTAL PROTEIN, SERUM 7.5 g/dL (6.4-8.2); VALPROIC ACID 41 mcg/mL (50-100)
[2021-02-22 17:49] LABS: LACTIC ACID 0.8 mmol/L (0.4-2.0)
[2021-02-22 18:26] LABS: COVID AG,FIA SOURCE NASOPHARYNGEAL
[2021-02-22 18:29] LABS: APPEARANCE,URINE CLEAR (CLEAR); GLUCOSE, URINE (UA) NEGATIVE (NEGATIVE); KETONES,URINE 15 mg/dL (NEGATIVE); LEUKOCYTE ESTERASE ,URINE NEGATIVE (NEGATIVE); NITRATE,URINE NEGATIVE (NEGATIVE); OCCULT BLOOD,URINE NEGATIVE (NEGATIVE); PROTEIN,URINE TRACE (NEGATIVE); UROBILINOGEN,URINE >=8.0 mg/dL (<=1.0)
[2021-02-22 18:51] LABS: BILIRUBIN,URINE PRELIM. POSITIVE (NEGATIVE)
[2021-02-22 18:54] LABS: AMPHET/METH SCREEN,URINE NEGATIVE (NEGATIVE); BARBITURATE SCREEN, URINE NEGATIVE (NEGATIVE); BENZODIAZEPINES SCREEN,URINE NEGATIVE (NEGATIVE); CANNABINOID SCREEN,URINE NEGATIVE (NEGATIVE); COCAINE SCREEN,URINE NEGATIVE (NEGATIVE); METHADONE SCREEN, URINE NEGATIVE (NEGATIVE); OPIATE SCREEN,URINE NEGATIVE (NEGATIVE)
[2021-02-22 19:10] LABS: PHENCYCLIDINE SCREEN,URINE NEGATIVE (NEGATIVE)
[2021-02-22] MEDS ORDERED: ACETAMINOPHEN 325 MG TABLET PO PRN ×2 (20:15→22:15)
[2021-02-22] MEDS ORDERED: ONDANSETRON HCL 4 MG/2 ML VIAL IVP PRN ×2 (20:15→22:15)
[2021-02-22] MEDS ORDERED: BISACODYL 10 MG RECTAL RECTAL SUPPOSITORY PR PRN (22:15)
[2021-02-22] MEDS ORDERED: HYDROCODONE/ACETAMINOPHEN 5-325 MG TABLET PO PRN (22:15)
[2021-02-22] MEDS ORDERED: ZOLPIDEM TARTRATE 5 MG TABLET PO PRN (22:15)
[2021-02-22] MEDS ORDERED: MORPHINE SULFATE 2 MG/ML SYRINGE IVP PRN (22:15)
[2021-02-22] MEDS ORDERED: MAGNESIUM HYDROXIDE SUSPENSION 30 ML UDCUP PO PRN (22:15)
[2021-02-22] MEDS ORDERED: LACTULOSE 200 GM/300 ML RECTAL SOLUTION PR ONE (22:15)
[2021-02-22] MEDS ORDERED: LACTULOSE 20 GM/30 ML SOLUTION UDCUP PO ONE (23:00)
[2021-02-22] MEDS: HEPARIN SODIUM,PORCINE 5,000 UNITS/ML VIAL SQ SCH (23:46)
[2021-02-23] MEDS: HEPARIN SODIUM,PORCINE 5,000 UNITS/ML VIAL SQ SCH ×2 (07:16→16:27)
[2021-02-23] MEDS: DOCUSATE SODIUM 100 MG CAPSULE PO SCH ×2 (09:00→21:29)
[2021-02-23 09:39] VITALS: BP 112/73
[2021-02-23] MEDS: PANTOPRAZOLE SODIUM 40 MG DR TABLET PO SCH (10:04)
[2021-02-23] MEDS: OMEGA-3/DHA/EPA/FISH OIL 1,000 MG CAPSULE PO SCH (10:04)
[2021-02-23 15:38] LABS: BASOPHILS % (AUTO) 1.4 % (0.0-2.0); EOSINOPHILS % (AUTO) 3.2 % (1.0-6.0); HEMATOCRIT 44.8 % (41-53); LYMPHOCYTES # (AUTO) 1.4 K/uL (1.0-4.8); LYMPHOCYTES % (AUTO) 23.9 % (22.0-44.0); MEAN CORPUSCULAR HEMOGLOBIN 31.2 pg (26.0-34.0); MEAN CORPUSCULAR HGB CONC 33.5 G/dL (31.0-37.0); MEAN CORPUSCULAR VOLUME 93 fL (80-100); MONOCYTES # (AUTO) 0.6 K/uL (0.1-1.0); MONOCYTES % (AUTO) 10.2 % (2.0-9.0); NEUTROPHILS # (AUTO) 3.7 K/uL (1.8-7.7); NEUTROPHILS % (AUTO) 61.3 % (40.0-70.0); PLATELET COUNT (AUTO) 243 K/uL (150-450); RED BLOOD CELL COUNT(AUTO) 4.81 MIL/uL (4.50-5.90); RED CELL DISTRIBUTION WIDTH 13.1 % (11.5-14.5)
[2021-02-23 16:08] VITALS: BP 101/51
[2021-02-23 20:53] VITALS: BP 131/82
[2021-02-24] MEDS: HEPARIN SODIUM,PORCINE 5,000 UNITS/ML VIAL SQ SCH ×4 (00:24→23:34)
[2021-02-24 00:26] VITALS: BP 113/66
[2021-02-24 05:12] VITALS: BP 110/67
[2021-02-24] MEDS: DOCUSATE SODIUM 100 MG CAPSULE PO SCH ×3 (08:29→23:34)
[2021-02-24] MEDS: OMEGA-3/DHA/EPA/FISH OIL 1,000 MG CAPSULE PO SCH (08:29)
[2021-02-24] MEDS: PANTOPRAZOLE SODIUM 40 MG DR TABLET PO SCH (08:29)
[2021-02-24 08:30] VITALS: BP 106/72
[2021-02-24 15:45] VITALS: BP 112/64
[2021-02-24 19:45] VITALS: BP 125/80
[2021-02-24 23:30] VITALS: BP 103/61
[2021-02-25 05:00] VITALS: BP 111/79
[2021-02-25 07:24] VITALS: BP 114/78
[2021-02-25] MEDS: PANTOPRAZOLE SODIUM 40 MG DR TABLET PO SCH (08:01)
[2021-02-25] MEDS: OMEGA-3/DHA/EPA/FISH OIL 1,000 MG CAPSULE PO SCH (08:01)
[2021-02-25] MEDS: DOCUSATE SODIUM 100 MG CAPSULE PO SCH ×3 (08:01→20:19)
[2021-02-25] MEDS: HEPARIN SODIUM,PORCINE 5,000 UNITS/ML VIAL SQ SCH ×3 (08:02→23:12)
[2021-02-25 19:45] VITALS: BP 120/79
[2021-02-25 23:10] VITALS: BP 106/63
[2021-02-26 05:00] VITALS: BP 132/78
[2021-02-26 08:05] VITALS: BP 124/76
[2021-02-26] MEDS: PANTOPRAZOLE SODIUM 40 MG DR TABLET PO SCH (08:16)
[2021-02-26] MEDS: DOCUSATE SODIUM 100 MG CAPSULE PO SCH (08:16)
[2021-02-26] MEDS: OMEGA-3/DHA/EPA/FISH OIL 1,000 MG CAPSULE PO SCH (08:16)
[2021-02-26] MEDS: HEPARIN SODIUM,PORCINE 5,000 UNITS/ML VIAL SQ SCH ×2 (08:21→16:00)
[2021-02-26] MEDS ORDERED: OLANZapine 5 MG RAPDIS TABLET PO PRN (11:30)
[2021-02-26] MEDS ORDERED: NALTREXONE HCL 50 MG TABLET PO SCH (14:00)
[2021-02-26 16:00] VITALS: BP 110/71
[2021-02-26 16:48] LABS: COVID AG,FIA SOURCE NASAL SWAB
[2021-02-26] MEDS ORDERED: FLUO20CA36 PO (17:38)
[2021-02-26] MEDS ORDERED: MELA5TAB3 PO (17:39)
[2021-02-26] MEDS ORDERED: MELATONIN 5 MG TABLET PO SCH (21:00)
[2021-02-26] MEDS ORDERED: OLANZapine 5 MG RAPDIS TABLET PO SCH (21:00)
[2021-02-27] MEDS ORDERED: FLUoxetine HCL 20 MG CAPSULE PO SCH (09:00)
== END 2021-02-26 18:55 | DRG 722 ==
LOC: EMS 15:52 → 6N 02-23 04:32
PROVIDERS: ADMIT Internal Medicine; ATTEND Internal Medicine
DX: R50.9 Fever, unspecified (principal); F25.9 Schizoaffective disorder, unspecified; R45.851 Suicidal ideations; Z20.822 Contact with and (suspected) exposure to COVID-19; E86.0 Dehydration; F32.9 Major depressive disorder, single episode, unspecified; Z79.899 Other long term (current) drug therapy; Z87.891 Personal history of nicotine dependence; Z91.19 Patient's noncompliance with other medical treatment and regimen
CPT/HCPCS: 70450; 71045; 80053; 80164; 80178; 82140; 83605; 85025; 85610; 87040; 93005; 99285; A9575; J1644; 36415-L1; 36415-TC; U0003

== ENCOUNTER 2021-02-26 16:52 | Inpatient (IN) | payer MEDICAID ==
[~2021-02-26] VITALS: Ht 170.2 cm; Wt 76.9 kg
[2021-02-26] MEDS ORDERED: FLUO20CA36 PO (17:38)
[2021-02-26] MEDS ORDERED: MELA5TAB40 PO (17:39)
[2021-02-26] MEDS ORDERED: TUBERCULIN, PURIFIED PROTEIN DERIVATIVE 5 TU/0.1 ML SYRINGE ID ONE (18:45)
[2021-02-26] MEDS ORDERED: OLANZapine 5 MG RAPDIS TABLET PO PRN (18:45)
[2021-02-26] MEDS ORDERED: GuaiFENesin/D-METHORPHAN [SUGAR-FREE] 200-20MG/10 ML SYRUP UDCUP PO PRN (18:45)
[2021-02-26] MEDS ORDERED: MAG HYDROX/AL HYDROX/SIMETH ES 30 ML SUSPENSION UDCUP PO PRN (18:45)
[2021-02-26] MEDS ORDERED: PROMETHAZINE HCL 25 MG TABLET PO PRN (18:45)
[2021-02-26] MEDS ORDERED: MAGNESIUM HYDROXIDE SUSPENSION 30 ML UDCUP PO PRN (18:45)
[2021-02-26] MEDS ORDERED: ACETAMINOPHEN 325 MG TABLET PO PRN (18:45)
[2021-02-26] MEDS ORDERED: LOPERAMIDE HCL 2 MG CAPSULE PO PRN (18:45)
[2021-02-26] MEDS ORDERED: HydrOXYzine PAMOATE 50 MG CAPSULE PO PRN (18:45)
[2021-02-26 19:15] VITALS: BP 117/77
[2021-02-26] MEDS ORDERED: PALIPERIDONE PALMITATE 234 MG/1.5 ML SYRINGE IM ONE (20:00)
[2021-02-26] MEDS ORDERED: OLANZapine 5 MG RAPDIS TABLET PO SCH (21:00)
[2021-02-26] MEDS: MELATONIN 3 MG TABLET PO SCH (21:04)
[2021-02-26] MEDS: THIAMINE 100 MG TABLET PO SCH (21:18)
[2021-02-27] MEDS: NALTREXONE HCL 50 MG TABLET PO SCH (08:22)
[2021-02-27] MEDS: THIAMINE 100 MG TABLET PO SCH ×2 (08:22→17:12)
[2021-02-27] MEDS: FOLIC ACID 1 MG TABLET PO SCH (08:22)
[2021-02-27] MEDS: OMEGA-3/DHA/EPA/FISH OIL 1,000 MG CAPSULE PO SCH (08:22)
[2021-02-27] MEDS: FLUoxetine HCL 20 MG CAPSULE PO SCH (08:22)
[2021-02-27] MEDS: MULTIVITAMINS WITH MINERALS, THERAPEUTIC TABLET PO SCH (08:22)
[2021-02-27] MEDS ORDERED: GuaiFENesin/D-METHORPHAN [SUGAR-FREE] 200-20MG/10 ML SYRUP UDCUP PO PRN (08:30)
[2021-02-27] MEDS ORDERED: ALBUTEROL SULFATE HFA 90 MCG/PUFF 8 GM INHALER IH PRN (08:30)
[2021-02-27] MEDS ORDERED: ONDANSETRON HCL 4 MG TABLET PO PRN (08:30)
[2021-02-27] MEDS ORDERED: MAG HYDROX/AL HYDROX/SIMETH ES 30 ML SUSPENSION UDCUP PO PRN (08:30)
[2021-02-27] MEDS ORDERED: CloNIDine HCL 0.1 MG TABLET PO PRN (08:30)
[2021-02-27] MEDS ORDERED: MAGNESIUM HYDROXIDE SUSPENSION 30 ML UDCUP PO PRN (08:30)
[2021-02-27] MEDS ORDERED: IBUPROFEN 400 MG TABLET PO PRN (08:30)
[2021-02-27] MEDS ORDERED: ACETAMINOPHEN 325 MG TABLET PO PRN (08:30)
[2021-02-27] MEDS ORDERED: DOCUSATE SODIUM 100 MG CAPSULE PO PRN (08:30)
[2021-02-27] MEDS ORDERED: PETROLATUM,WHITE 28 GM JELLY TP PRN (08:30)
[2021-02-27] MEDS ORDERED: NICOTINE 14 MG/24 HOUR PATCH TD PRN (08:30)
[2021-02-27] MEDS ORDERED: LOPERAMIDE HCL 2 MG CAPSULE PO PRN (08:30)
[2021-02-27 08:35] VITALS: BP 114/64
[2021-02-27 17:13] VITALS: BP 135/57
[2021-02-27] MEDS: ZOLPIDEM TARTRATE 10 MG TABLET PO PRN (21:32)
[2021-02-27] MEDS: MELATONIN 3 MG TABLET PO SCH (21:32)
[2021-02-28] MEDS: OMEGA-3/DHA/EPA/FISH OIL 1,000 MG CAPSULE PO SCH (08:53)
[2021-02-28] MEDS: NALTREXONE HCL 50 MG TABLET PO SCH (08:54)
[2021-02-28] MEDS: FOLIC ACID 1 MG TABLET PO SCH (08:54)
[2021-02-28] MEDS: MULTIVITAMINS WITH MINERALS, THERAPEUTIC TABLET PO SCH (08:54)
[2021-02-28] MEDS: THIAMINE 100 MG TABLET PO SCH ×2 (08:54→16:21)
[2021-02-28] MEDS: FLUoxetine HCL 20 MG CAPSULE PO SCH (08:54)
[2021-02-28 08:55] VITALS: BP 118/74
[2021-02-28] MEDS: LORazepam 2 MG TABLET PO PRN (09:12)
[2021-02-28 14:29] LABS: COVID AG,FIA SOURCE NASOPHARYNGEAL
[2021-02-28 16:11] VITALS: BP 147/78
[2021-02-28 18:39] LABS: APPEARANCE,URINE CLEAR (CLEAR); BILIRUBIN,URINE NEGATIVE (NEGATIVE); GLUCOSE, URINE (UA) NEGATIVE (NEGATIVE); KETONES,URINE NEGATIVE (NEGATIVE); LEUKOCYTE ESTERASE ,URINE NEGATIVE (NEGATIVE); NITRATE,URINE NEGATIVE (NEGATIVE); OCCULT BLOOD,URINE NEGATIVE (NEGATIVE); PH,URINE 6.5 (5.0-8.0); PROTEIN,URINE NEGATIVE (NEGATIVE); UROBILINOGEN,URINE 0.2 mg/dL (<=1.0)
[2021-02-28] MEDS: MELATONIN 3 MG TABLET PO SCH (20:17)
[2021-03-01 08:19] VITALS: BP 116/70
[2021-03-01] MEDS: THIAMINE 100 MG TABLET PO SCH ×2 (08:40→16:27)
[2021-03-01] MEDS: FLUoxetine HCL 20 MG CAPSULE PO SCH (08:40)
[2021-03-01] MEDS: FOLIC ACID 1 MG TABLET PO SCH (08:40)
[2021-03-01] MEDS: MULTIVITAMINS WITH MINERALS, THERAPEUTIC TABLET PO SCH (08:41)
[2021-03-01] MEDS: NALTREXONE HCL 50 MG TABLET PO SCH (08:41)
[2021-03-01] MEDS: OMEGA-3/DHA/EPA/FISH OIL 1,000 MG CAPSULE PO SCH (08:41)
[2021-03-01 18:21] VITALS: BP 130/87
[2021-03-01] MEDS: MELATONIN 3 MG TABLET PO SCH (20:05)
[2021-03-02] MEDS: LORazepam 2 MG TABLET PO PRN ×3 (04:15→22:20)
[2021-03-02 04:17] VITALS: BP 121/90
[2021-03-02] MEDS: NALTREXONE HCL 50 MG TABLET PO SCH (08:07)
[2021-03-02] MEDS: OMEGA-3/DHA/EPA/FISH OIL 1,000 MG CAPSULE PO SCH (08:08)
[2021-03-02] MEDS: MULTIVITAMINS WITH MINERALS, THERAPEUTIC TABLET PO SCH (08:08)
[2021-03-02] MEDS: THIAMINE 100 MG TABLET PO SCH ×2 (08:08→16:38)
[2021-03-02] MEDS: FLUoxetine HCL 20 MG CAPSULE PO SCH (08:08)
[2021-03-02] MEDS: FOLIC ACID 1 MG TABLET PO SCH (08:08)
[2021-03-02 08:26] VITALS: BP 120/82
[2021-03-02] MEDS ORDERED: PALIPERIDONE PALMITATE 156 MG/ML SYRINGE IM ONE (09:00)
[2021-03-02 16:29] VITALS: BP 127/83
[2021-03-02] MEDS: MELATONIN 3 MG TABLET PO SCH (20:33)
[2021-03-03] MEDS: NALTREXONE HCL 50 MG TABLET PO SCH (08:28)
[2021-03-03] MEDS: FLUoxetine HCL 20 MG CAPSULE PO SCH (08:28)
[2021-03-03] MEDS: MULTIVITAMINS WITH MINERALS, THERAPEUTIC TABLET PO SCH (08:28)
[2021-03-03] MEDS: FOLIC ACID 1 MG TABLET PO SCH (08:28)
[2021-03-03] MEDS: THIAMINE 100 MG TABLET PO SCH ×2 (08:28→18:01)
[2021-03-03] MEDS: OMEGA-3/DHA/EPA/FISH OIL 1,000 MG CAPSULE PO SCH (08:28)
[2021-03-03] MEDS: LORazepam 2 MG TABLET PO PRN (08:30)
[2021-03-03 10:53] VITALS: BP 121/76
[2021-03-03 16:21] VITALS: BP 107/61
[2021-03-03] MEDS: MELATONIN 3 MG TABLET PO SCH (21:34)
[2021-03-03] MEDS: ZOLPIDEM TARTRATE 10 MG TABLET PO PRN (22:00)
[2021-03-04 08:30] VITALS: BP 116/85
[2021-03-04] MEDS: THIAMINE 100 MG TABLET PO SCH ×2 (09:23→17:23)
[2021-03-04] MEDS: LORazepam 2 MG TABLET PO PRN (09:23)
[2021-03-04] MEDS: FLUoxetine HCL 20 MG CAPSULE PO SCH (09:23)
[2021-03-04] MEDS: MULTIVITAMINS WITH MINERALS, THERAPEUTIC TABLET PO SCH (09:23)
[2021-03-04] MEDS: OMEGA-3/DHA/EPA/FISH OIL 1,000 MG CAPSULE PO SCH (09:23)
[2021-03-04] MEDS: NALTREXONE HCL 50 MG TABLET PO SCH (09:23)
[2021-03-04] MEDS: FOLIC ACID 1 MG TABLET PO SCH (09:24)
[2021-03-04 16:55] VITALS: BP 128/70
[2021-03-04] MEDS: MELATONIN 3 MG TABLET PO SCH (21:20)
[2021-03-04] MEDS: ZOLPIDEM TARTRATE 10 MG TABLET PO PRN (21:40)
[2021-03-05 03:18] VITALS: BP 118/80
[2021-03-05 08:00] VITALS: BP 107/62
[2021-03-05] MEDS: FLUoxetine HCL 20 MG CAPSULE PO SCH (08:59)
[2021-03-05] MEDS: OMEGA-3/DHA/EPA/FISH OIL 1,000 MG CAPSULE PO SCH (08:59)
[2021-03-05] MEDS: FOLIC ACID 1 MG TABLET PO SCH (09:00)
[2021-03-05] MEDS: THIAMINE 100 MG TABLET PO SCH ×2 (09:01→16:18)
[2021-03-05] MEDS: NALTREXONE HCL 50 MG TABLET PO SCH (09:01)
[2021-03-05] MEDS: MULTIVITAMINS WITH MINERALS, THERAPEUTIC TABLET PO SCH (09:01)
[2021-03-05] MEDS: LORazepam 2 MG TABLET PO PRN (17:55)
[2021-03-05] MEDS: MELATONIN 3 MG TABLET PO SCH (20:23)
[2021-03-05] MEDS ORDERED: QUEtiapine FUMARATE 200 MG TABLET PO ONE (20:45)
[2021-03-05] MEDS ORDERED: QUEtiapine FUMARATE 100 MG TABLET PO PRN (20:45)
[2021-03-06 09:25] VITALS: BP 128/79
[2021-03-06] MEDS: THIAMINE 100 MG TABLET PO SCH ×2 (09:25→16:14)
[2021-03-06] MEDS: MULTIVITAMINS WITH MINERALS, THERAPEUTIC TABLET PO SCH (09:25)
[2021-03-06] MEDS: OMEGA-3/DHA/EPA/FISH OIL 1,000 MG CAPSULE PO SCH (09:25)
[2021-03-06] MEDS: FLUoxetine HCL 20 MG CAPSULE PO SCH (09:25)
[2021-03-06] MEDS: NALTREXONE HCL 50 MG TABLET PO SCH (09:25)
[2021-03-06] MEDS: LORazepam 2 MG TABLET PO PRN (09:25)
[2021-03-06] MEDS: FOLIC ACID 1 MG TABLET PO SCH (09:27)
[2021-03-06 15:25] LABS: COVID AG,FIA SOURCE NASAL SWAB
[2021-03-06 16:11] VITALS: BP 112/71
[2021-03-06] MEDS: MELATONIN 3 MG TABLET PO SCH (20:20)
[2021-03-06] MEDS ORDERED: QUEtiapine FUMARATE 200 MG TABLET PO SCH ×2 (21:00)
[2021-03-07] VITALS: BP 111/67
[2021-03-07 08:42] VITALS: BP 122/86
[2021-03-07] MEDS: FLUoxetine HCL 20 MG CAPSULE PO SCH (09:48)
[2021-03-07] MEDS: LORazepam 2 MG TABLET PO PRN ×2 (09:48→22:04)
[2021-03-07] MEDS: THIAMINE 100 MG TABLET PO SCH ×2 (09:48→16:19)
[2021-03-07] MEDS: NALTREXONE HCL 50 MG TABLET PO SCH (09:49)
[2021-03-07] MEDS: OMEGA-3/DHA/EPA/FISH OIL 1,000 MG CAPSULE PO SCH (09:49)
[2021-03-07] MEDS: FOLIC ACID 1 MG TABLET PO SCH (09:49)
[2021-03-07] MEDS: MULTIVITAMINS WITH MINERALS, THERAPEUTIC TABLET PO SCH (09:49)
[2021-03-07 16:02] VITALS: BP 123/70
[2021-03-07] MEDS: MELATONIN 3 MG TABLET PO SCH (20:20)
[2021-03-07] MEDS: QUEtiapine FUMARATE 200 MG TABLET PO SCH (20:20)
[2021-03-08] MEDS: FOLIC ACID 1 MG TABLET PO SCH (08:41)
[2021-03-08] MEDS: THIAMINE 100 MG TABLET PO SCH (08:41)
[2021-03-08] MEDS: OMEGA-3/DHA/EPA/FISH OIL 1,000 MG CAPSULE PO SCH (08:41)
[2021-03-08] MEDS: FLUoxetine HCL 20 MG CAPSULE PO SCH (08:41)
[2021-03-08] MEDS: NALTREXONE HCL 50 MG TABLET PO SCH (08:41)
[2021-03-08] MEDS: MULTIVITAMINS WITH MINERALS, THERAPEUTIC TABLET PO SCH (08:41)
[2021-03-08 08:57] VITALS: BP 112/79
[2021-03-08 16:00] VITALS: BP 109/69
[2021-03-08] MEDS: MELATONIN 3 MG TABLET PO SCH (20:21)
[2021-03-08] MEDS: QUEtiapine FUMARATE 200 MG TABLET PO SCH (20:21)
[2021-03-09 08:27] VITALS: BP 125/90
[2021-03-09] MEDS: FLUoxetine HCL 20 MG CAPSULE PO SCH (09:06)
[2021-03-09] MEDS: NALTREXONE HCL 50 MG TABLET PO SCH (09:06)
[2021-03-09] MEDS: MULTIVITAMINS WITH MINERALS, THERAPEUTIC TABLET PO SCH (09:06)
[2021-03-09] MEDS: OMEGA-3/DHA/EPA/FISH OIL 1,000 MG CAPSULE PO SCH (09:06)
[2021-03-09 16:17] VITALS: BP 122/76
[2021-03-09] MEDS: MELATONIN 3 MG TABLET PO SCH (21:01)
[2021-03-09] MEDS: QUEtiapine FUMARATE 200 MG TABLET PO SCH (21:02)
[2021-03-09] MEDS: LORazepam 2 MG TABLET PO PRN (21:54)
[2021-03-10 03:29] VITALS: BP 124/81
[2021-03-10] MEDS: LORazepam 2 MG TABLET PO PRN ×2 (03:29→16:35)
[2021-03-10] MEDS: MULTIVITAMINS WITH MINERALS, THERAPEUTIC TABLET PO SCH (10:10)
[2021-03-10] MEDS: OMEGA-3/DHA/EPA/FISH OIL 1,000 MG CAPSULE PO SCH (10:10)
[2021-03-10] MEDS: FLUoxetine HCL 20 MG CAPSULE PO SCH (10:10)
[2021-03-10] MEDS: NALTREXONE HCL 50 MG TABLET PO SCH (10:11)
[2021-03-10 10:29] VITALS: BP 105/65
[2021-03-10 17:00] VITALS: BP 115/79
[2021-03-10] MEDS: MELATONIN 3 MG TABLET PO SCH (20:31)
[2021-03-10] MEDS: QUEtiapine FUMARATE 200 MG TABLET PO SCH (20:32)
[2021-03-11 03:12] VITALS: BP 125/70
[2021-03-11] MEDS: LORazepam 2 MG TABLET PO PRN (03:17)
[2021-03-11 08:02] VITALS: BP 120/78
[2021-03-11] MEDS: FLUoxetine HCL 20 MG CAPSULE PO SCH (09:43)
[2021-03-11] MEDS: OMEGA-3/DHA/EPA/FISH OIL 1,000 MG CAPSULE PO SCH (09:43)
[2021-03-11] MEDS: NALTREXONE HCL 50 MG TABLET PO SCH (09:43)
[2021-03-11] MEDS: MULTIVITAMINS WITH MINERALS, THERAPEUTIC TABLET PO SCH (09:43)
[2021-03-11 16:07] VITALS: BP 120/78
[2021-03-11 18:17] LABS: COVID AG,FIA SOURCE NASOPHARYNGEAL
[2021-03-11] MEDS: MELATONIN 3 MG TABLET PO SCH (20:03)
[2021-03-11] MEDS: QUEtiapine FUMARATE 200 MG TABLET PO SCH (20:08)
[2021-03-11 23:45] VITALS: BP 106/70
[2021-03-11] MEDS: ZOLPIDEM TARTRATE 10 MG TABLET PO PRN (23:51)
[2021-03-12] MEDS: MULTIVITAMINS WITH MINERALS, THERAPEUTIC TABLET PO SCH (08:12)
[2021-03-12] MEDS: OMEGA-3/DHA/EPA/FISH OIL 1,000 MG CAPSULE PO SCH (08:12)
[2021-03-12] MEDS: NALTREXONE HCL 50 MG TABLET PO SCH (08:12)
[2021-03-12] MEDS: FLUoxetine HCL 20 MG CAPSULE PO SCH (08:13)
[2021-03-12 10:16] VITALS: BP 106/65
[2021-03-12 16:07] VITALS: BP 121/70
[2021-03-12] MEDS: LORazepam 2 MG TABLET PO PRN (16:07)
[2021-03-12 16:23] VITALS: BP 121/70
[2021-03-12] MEDS: MELATONIN 3 MG TABLET PO SCH (20:10)
[2021-03-12] MEDS: ZOLPIDEM TARTRATE 10 MG TABLET PO PRN (20:34)
[2021-03-12] MEDS: QUEtiapine FUMARATE 200 MG TABLET PO SCH (20:34)
[2021-03-13 03:36] VITALS: BP 115/80
[2021-03-13 08:21] VITALS: BP 105/66
[2021-03-13] MEDS: FLUoxetine HCL 20 MG CAPSULE PO SCH (08:59)
[2021-03-13] MEDS: NALTREXONE HCL 50 MG TABLET PO SCH (08:59)
[2021-03-13] MEDS: MULTIVITAMINS WITH MINERALS, THERAPEUTIC TABLET PO SCH (08:59)
[2021-03-13] MEDS: OMEGA-3/DHA/EPA/FISH OIL 1,000 MG CAPSULE PO SCH (08:59)
[2021-03-13] MEDS: LORazepam 2 MG TABLET PO PRN (13:15)
[2021-03-13 16:16] VITALS: BP 103/62
[2021-03-13] MEDS: MELATONIN 3 MG TABLET PO SCH (20:14)
[2021-03-13] MEDS: QUEtiapine FUMARATE 200 MG TABLET PO SCH (20:15)
[2021-03-13] MEDS: GABAPENTIN 300 MG CAPSULE PO SCH (21:13)
[2021-03-13] MEDS: ZOLPIDEM TARTRATE 10 MG TABLET PO PRN (21:36)
[2021-03-14 01:22] VITALS: BP 105/68
[2021-03-14] MEDS: GABAPENTIN 300 MG CAPSULE PO SCH ×4 (09:01→21:17)
[2021-03-14] MEDS: NALTREXONE HCL 50 MG TABLET PO SCH (09:01)
[2021-03-14] MEDS: MULTIVITAMINS WITH MINERALS, THERAPEUTIC TABLET PO SCH (09:01)
[2021-03-14] MEDS: OMEGA-3/DHA/EPA/FISH OIL 1,000 MG CAPSULE PO SCH (09:01)
[2021-03-14] MEDS: FLUoxetine HCL 20 MG CAPSULE PO SCH (09:02)
[2021-03-14 10:43] VITALS: BP 106/69
[2021-03-14 16:07] VITALS: BP 121/79
[2021-03-14] MEDS: MELATONIN 3 MG TABLET PO SCH (21:17)
[2021-03-14] MEDS: QUEtiapine FUMARATE 200 MG TABLET PO SCH (21:17)
[2021-03-15] MEDS: FLUoxetine HCL 20 MG CAPSULE PO SCH (09:04)
[2021-03-15] MEDS: MULTIVITAMINS WITH MINERALS, THERAPEUTIC TABLET PO SCH (09:04)
[2021-03-15] MEDS: NALTREXONE HCL 50 MG TABLET PO SCH (09:04)
[2021-03-15] MEDS: GABAPENTIN 300 MG CAPSULE PO SCH ×4 (09:05→20:09)
[2021-03-15] MEDS: OMEGA-3/DHA/EPA/FISH OIL 1,000 MG CAPSULE PO SCH (09:05)
[2021-03-15 09:28] VITALS: BP 130/74
[2021-03-15] MEDS: GABAPENTIN 400 MG CAPSULE PO PRN ×2 (12:00→12:01)
[2021-03-15 16:07] VITALS: BP 121/73
[2021-03-15] MEDS: QUEtiapine FUMARATE 200 MG TABLET PO SCH (20:08)
[2021-03-15] MEDS: MELATONIN 3 MG TABLET PO SCH (20:08)
[2021-03-16] MEDS: ZOLPIDEM TARTRATE 10 MG TABLET PO PRN ×2 (01:52→23:04)
[2021-03-16 01:57] VITALS: BP 126/90
[2021-03-16 08:00] VITALS: BP 119/80
[2021-03-16] MEDS: OMEGA-3/DHA/EPA/FISH OIL 1,000 MG CAPSULE PO SCH (08:03)
[2021-03-16] MEDS: GABAPENTIN 300 MG CAPSULE PO SCH ×4 (08:03→20:17)
[2021-03-16] MEDS: NALTREXONE HCL 50 MG TABLET PO SCH (08:03)
[2021-03-16] MEDS: FLUoxetine HCL 20 MG CAPSULE PO SCH (08:03)
[2021-03-16] MEDS: MULTIVITAMINS WITH MINERALS, THERAPEUTIC TABLET PO SCH (08:03)
[2021-03-16] MEDS ORDERED: QUET200T30 PO (12:19)
[2021-03-16] MEDS ORDERED: OMEG-135 PO (12:19)
[2021-03-16] MEDS ORDERED: GABA-1181 PO (12:19)
[2021-03-16] MEDS ORDERED: MELA3TAB89 PO (12:19)
[2021-03-16] MEDS ORDERED: FLUO20CA36 PO (12:19)
[2021-03-16 16:00] VITALS: BP 103/71
[2021-03-16] MEDS: MELATONIN 3 MG TABLET PO SCH (20:17)
[2021-03-16] MEDS: QUEtiapine FUMARATE 200 MG TABLET PO SCH (20:17)
[2021-03-17 08:19] VITALS: BP 113/71
[2021-03-17] MEDS: OMEGA-3/DHA/EPA/FISH OIL 1,000 MG CAPSULE PO SCH (08:34)
[2021-03-17] MEDS: MULTIVITAMINS WITH MINERALS, THERAPEUTIC TABLET PO SCH (08:34)
[2021-03-17] MEDS: GABAPENTIN 300 MG CAPSULE PO SCH ×4 (08:34→20:57)
[2021-03-17] MEDS: FLUoxetine HCL 20 MG CAPSULE PO SCH (08:35)
[2021-03-17] MEDS: NALTREXONE HCL 50 MG TABLET PO SCH (08:35)
[2021-03-17] MEDS ORDERED: MULT-1239 PO (10:41)
[2021-03-17 12:45] VITALS: BP 132/77
[2021-03-17 13:45] VITALS: BP 118/70
[2021-03-17 16:00] VITALS: BP 137/95
[2021-03-17] MEDS: HydrOXYzine PAMOATE 50 MG CAPSULE PO PRN (17:41)
[2021-03-17] MEDS: ZOLPIDEM TARTRATE 10 MG TABLET PO PRN (20:57)
[2021-03-17] MEDS: QUEtiapine FUMARATE 200 MG TABLET PO SCH (20:57)
[2021-03-17] MEDS: MELATONIN 3 MG TABLET PO SCH (21:43)
[2021-03-18 00:25] VITALS: BP 120/88
[2021-03-18] MEDS: FLUoxetine HCL 20 MG CAPSULE PO SCH (08:17)
[2021-03-18] MEDS: GABAPENTIN 300 MG CAPSULE PO SCH ×4 (08:17→21:28)
[2021-03-18] MEDS: NALTREXONE HCL 50 MG TABLET PO SCH (08:17)
[2021-03-18] MEDS: OMEGA-3/DHA/EPA/FISH OIL 1,000 MG CAPSULE PO SCH (08:17)
[2021-03-18] MEDS: MULTIVITAMINS WITH MINERALS, THERAPEUTIC TABLET PO SCH (08:17)
[2021-03-18 08:41] VITALS: BP 113/81
[2021-03-18 09:24] LABS: COVID AG,FIA SOURCE NASAL SWAB
[2021-03-18 16:01] VITALS: BP 111/71
[2021-03-18] MEDS: HydrOXYzine PAMOATE 50 MG CAPSULE PO PRN (17:26)
[2021-03-18] MEDS: MELATONIN 3 MG TABLET PO SCH (21:28)
[2021-03-18] MEDS: QUEtiapine FUMARATE 200 MG TABLET PO SCH (21:29)
[2021-03-18] MEDS: ZOLPIDEM TARTRATE 10 MG TABLET PO PRN (21:30)
[2021-03-19 03:00] VITALS: BP 135/70
[2021-03-19] MEDS: OMEGA-3/DHA/EPA/FISH OIL 1,000 MG CAPSULE PO SCH (08:01)
[2021-03-19] MEDS: GABAPENTIN 300 MG CAPSULE PO SCH ×3 (08:01→17:44)
[2021-03-19] MEDS: MULTIVITAMINS WITH MINERALS, THERAPEUTIC TABLET PO SCH (08:01)
[2021-03-19] MEDS: FLUoxetine HCL 20 MG CAPSULE PO SCH (08:01)
[2021-03-19] MEDS: NALTREXONE HCL 50 MG TABLET PO SCH (08:01)
[2021-03-19 08:30] VITALS: BP 120/98
[2021-03-19] MEDS: HydrOXYzine PAMOATE 50 MG CAPSULE PO PRN (17:44)
[2021-03-19 18:07] VITALS: BP 115/81
[2021-03-19] MEDS ORDERED: FLUO20CA36 PO ×2 (19:04→19:05)
[2021-03-19] MEDS ORDERED: GABA-1181 PO (19:06)
[2021-03-19] MEDS ORDERED: MELA3TAB89 PO (19:07)
[2021-03-19] MEDS ORDERED: OMEG-135 PO (19:08)
[2021-03-19] MEDS ORDERED: QUET200T PO (19:09)
== END 2021-03-19 20:00 | disposition home or self-care (01) | DRG 750 ==
LOC: 3EI 19:00
PROVIDERS: ADMIT Psychiatry & Neurology Psychiatry; ATTEND Psychiatry & Neurology Psychiatry
DX: F25.0 Schizoaffective disorder, bipolar type (principal); R45.851 Suicidal ideations; E11.9 Type 2 diabetes mellitus without complications; D64.9 Anemia, unspecified; F10.10 Alcohol abuse, uncomplicated; F12.10 Cannabis abuse, uncomplicated; F41.9 Anxiety disorder, unspecified; F60.0 Paranoid personality disorder; I10 Essential (primary) hypertension; Z20.822 Contact with and (suspected) exposure to COVID-19; J44.9 Chronic obstructive pulmonary disease, unspecified; Z55.9 Problems related to education and literacy, unspecified; Z59.9 Problem related to housing and economic circumstances, unspecified; Z65.3 Problems related to other legal circumstances; Z87.891 Personal history of nicotine dependence; Z91.19 Patient's noncompliance with other medical treatment and regimen; Z79.899 Other long term (current) drug therapy
CPT/HCPCS: 71046; 81003; 87081; 93005; 36415-L1; 36415-TC